=== PATIENT | female | born 1990 | race Asian ===

== ENCOUNTER 2016-07-22 12:11 | Emergency (ER) | payer OTHER ==
[~2016-07-22] VITALS: Ht 152.4 cm; Wt 62.6 kg
[~2016-07-22 12:11] MED LIST: CIPR500T PO; HYDR-971 PO; NAPR500T8 PO; PHEN-318 PO; PNV1TABL25 PO
[2016-07-22 12:29] VITALS: BP 122/79
[2016-07-22] MEDS ORDERED: TRAM-29 PO (13:02)
[2016-07-22] MEDS ORDERED: PENI500T PO (13:02)
--- NOTE | 2016-07-22 13:02 | PHYS DOC ---
Past Medical History Past Medical History: No Pertinent History Past Surgical History: No Surgical History Smoking: Chew Alcohol Use: None Additional Information: Pt chews tobbacco Drug Use: None Adult General Chief Complaint Chief Complaint: EARACHE/EAR PAIN HPI HPI Patient is a 25 year old female who presents with right ear and right ventricular dental pain for one week. She denies any fever, nasal congestion, sore throat, cough, or ear drainage. She does not have a PCP. Review of Systems Review of Systems Constitutional: Denies fever or chills. [] Eyes: Denies change in visual acuity, redness, or eye pain. [] HENT: Denies nasal congestion or sore throat. Reports right ear pain and dental pain. Respiratory: Denies cough or shortness of breath. [] Integument: Denies rash or skin lesions. [] Neurologic: Denies headache, focal weakness or sensory changes. [] Allergies Allergies Allergies Coded Allergies Type Severity Reaction Last Updated Verified No Known Drug Allergies 12/09/14 No Physical Exam Physical Exam Constitutional: Well developed, well nourished, no acute distress, non-toxic appearance. [] HENT: Normocephalic, atraumatic, bilateral external ears normal, oropharynx moist, no oral exudates, nose normal. Bilateral TMs without erythema or bulging. There is no posterior pharyngeal erythema or tonsillar edema. Bilateral nasal turbinates are swollen and erythematous. Tooth #31 is carious and tender without surrounding gingival edema or dental abscess. Eyes: PERRLA, EOMI, conjunctiva normal, no discharge. [] Neck: Normal range of motion, no tenderness, supple, no stridor. [] Skin: Warm, dry, no erythema, no rash. [] Neurologic: Alert and oriented X 3, normal motor function, normal sensory function, no focal deficits noted. [] Psychologic: Affect normal, judgement normal, mood normal. [] Current Patient Data Vital Signs Vital Signs Date Time Temp Pulse Resp B/P Pulse Ox O2 Delivery O2 Flow Rate FiO2 07/22/16 12:29 98.2 69 20 98 Room Air 98.2 EKG EKG [] Radiology/Procedures Radiology/Procedures [] Course & Med Decision Making Course & Med Decision Making Pertinent Labs and Imaging studies reviewed. (See chart for details) [] Dragon Disclaimer Dragon Disclaimer This electronic medical record was generated, in whole or in part, using a voice recognition dictation system. Departure Departure Impression: Primary Impression: Dental caries Disposition: HOME, SELF-CARE Condition: STABLE Referrals: NO PCP (PCP) Patient Instructions: Dental Caries, Dental Pain, [id number] Additional Instructions: Please complete all the prescribed antibiotics, even if you are feeling better. Please take the prescribed pain medication as directed. Do not drive or operate heavy machinery while taking pain medication. Please follow-up with the dentist of your choice as soon as possible to have your tooth treated. Return to the emergency department if you have any new or concerning symptoms. Scripts Tramadol Hcl (Ultram)50 Mg [id number] Mg PO Q6H PRN PAIN #20 TAB Prov:JENNIFER SENA 07/22/16 Penicillin V Potassium 500 Mg Tablet1 Tab PO TID #30 TAB Prov:JENNIFER SENA 07/22/16 JENNIEFR SENA Jul 22, 2016 13:02
== END 2016-07-22 13:07 | disposition home or self-care (01) ==
LOC: ER 12:11
DX: K02.9 Dental caries, unspecified (principal); F17.220 Nicotine dependence, chewing tobacco, uncomplicated
CPT/HCPCS: 99283

== ENCOUNTER 2018-08-27 07:15 | Inpatient (IN) | payer OTHER ==
[~2018-08-27] VITALS: Ht 152.4 cm; Wt 64.9 kg
[~2018-08-27 07:15] MED LIST changes: +HYDR-3164 PO; -HYDR-971 PO; +PENI500T PO; +TRAM-48 PO
[2018-08-27] MEDS ORDERED: IV RINGERS,LACTATED 1000ML 1,000 ML IV SCH ×2 (07:23→12:31)
[2018-08-27] MEDS ORDERED: CITRIC ACID/SODIUM CITRATE 30 ML SOLUTION. PO PRN (07:30)
[2018-08-27] MEDS ORDERED: 0.9 % SODIUM CHLORIDE 10 ML DISP.SYRIN. IV PRN ×2 (07:30→15:30)
[2018-08-27] MEDS ORDERED: TERBUTALINE 1 MG/ML VIAL. SQ PRN (07:30)
[2018-08-27] MEDS ORDERED: IBUPROFEN 400 MG TABLET. PO PRN ×2 (07:30→15:30)
[2018-08-27] MEDS ORDERED: LIDOCAINE 1% PF 30 ML VIAL. INJ PRN (07:30)
[2018-08-27] MEDS ORDERED: BUTORPHANOL 2 MG/ML VIAL. IV PRN ×2 (07:30)
[2018-08-27] MEDS ORDERED: fentaNYL PF VIAL 100 MCG/2 ML VIAL IV PRN ×2 (07:30)
[2018-08-27] MEDS ORDERED: OXYTOCIN 30 UNIT/500 ML PREMIX 500 ML IV PRN ×3 (07:30→15:30)
[2018-08-27] MEDS ORDERED: ONDANSETRON PF 4 MG/2 ML VIAL. IV PRN (07:30)
[2018-08-27 08:00] VITALS: BP 129/77
[2018-08-27 08:30] LABS: BASO % 0 % (0-3); EOS # 0.3 x10^3/uL (0.0-0.7); EOS % 3 % (0-3); HEMATOCRIT 30.8 % (36.0-47.0); HEMOGLOBIN 10.4 g/dL (12.0-15.5); LYMPH # 1.9 x10^3/uL (1.0-4.8); LYMPH % 24 % (24-48); MEAN CORPUSCULAR HEMOGLOBIN 30 pg (25-35); MEAN CORPUSCULAR HGB CONC 34 g/dL (31-37); MEAN CORPUSCULAR VOLUME 88 fL (79-100); MONO # 0.6 x10^3/uL (0.0-1.1); MONO % 8 % (0-9); NEUT # 5.3 x10^3uL (1.8-7.7); NEUT % 65 % (31-73); PLATELET COUNT 167 x10^3/uL (140-400); RED BLOOD COUNT 3.49 x10^6/uL (3.50-5.40); RED CELL DISTRIBUTION WIDTH 13.3 % (11.5-14.5); WHITE BLOOD COUNT 8.2 x10^3/uL (4.0-11.0)
[2018-08-27] MEDS ORDERED: OXYTOCIN PREMIX 30 UNIT/500 ML BAG. IV ONE (09:00)
[2018-08-27 10:18] LABS: % BANDS 6 % (0-9); % LYMPHS 24 % (24-48); % METAS 1 % (0-0); % MONOS 6 % (0-10); % MYELOS 1 % (0-0); % SEGS 62 % (35-66); PLT ESTIMATE ADEQUATE (ADEQUATE); POLYCHROMASIA SLIGHT
[2018-08-27] MEDS ORDERED: ROPIVacaine 0.2% PF 10 ML VIAL. ONE ×2 (12:29→12:45)
[2018-08-27] MEDS ORDERED: L&D EPIDURAL SYRINGE 50 ML ONE (12:29)
[2018-08-27] MEDS ORDERED: NALOXONE 0.4 MG/ML VIAL. IV PRN (12:45)
[2018-08-27] MEDS ORDERED: L&D EPIDURAL SYRINGE 50 ML EPID PRN (12:45)
[2018-08-27] MEDS ORDERED: ROPIVacaine 0.2% IN 0.9%NACL PF 40 MG/20 ML DISP.SYRIN. EPID PRN (12:45)
[2018-08-27] MEDS ORDERED: fentaNYL PF VIAL 100 MCG/2 ML VIAL EPI PRN (12:45)
--- NOTE | 2018-08-27 13:05 | PDOC1 ---
OB - History Hx of Present Care: Good Care Ultrasounds: Normal mid trimester US Obstetrical Complications: None Medical Complications: None Past Family/Social History * Past Medical, Surgical, Family and Obstetric Histories reviewed from chart. Blood Type: A+ Rubella: Immune RPR/VDRL: Negative GBS Status: Negative HBsAG: Negative OB - Chief Complaint & HPI Date of Admission: Date of Admission: August 27, 2018 at 07:15 Chief Complaint/History : 3 Para: 2 EGA: 39 Reason for admission: induction of labor Admission Nurse Assessment Rev: Yes OB - Admission Exam Physical Exam Vitals: VS - Last 72 Hours, by Label Date Time Temp Pulse Resp B/P (MAP) Pulse Ox O2 Delivery O2 Flow Rate FiO2 08/27/18 12:54 20 08/27/18 08:00 98.0 75 20 129/77 (94) 98.0 HEENT: Normal Heart: Regular Rate Lungs: Clear, Equal Abdomen: Gravid, Non tender, Soft Extremities: Edema Reflexes: Normal Cervical Dilatation: 3cm Effacement: 50% Station: -3 Membranes: Intact Amniotic Fluid: Clear Heart Rate: Normal Accelerations: Accelerations Present Contractions on Admission: None Intensity: Mild Text A: 39 wks IUP IOL maternal discomforts P: Admit labor induction pitocin. TIMMY KELSEY Jr, MD August 27, 2018 13:05
--- NOTE | 2018-08-27 15:29 | PDOC ---
VAGINAL DELIVERY DATE DATE: 08/27/18 TIME: 15:26 : 3 Para: 2 EDC: September 08, 2018 VAGINAL DELIVERY: VTX VACCUM ASSISTED: No PLACENTA: Spontaneous 8/9 SEX: Male WEIGHT 6/10 Nuchal Cord: Yes Amniotic Fluid: Clear PAIN: Epidural EPISIOTOMY: No EXTENSION: Yes EBL 400cc COMPLICATIONS None CONDITION Stable Signs of Intrauterine Infectio: None Shoulder Dystocia: No DIAGNOSIS CIRA Cobb MD August 27, 2018 15:29
[2018-08-27] MEDS ORDERED: MAGNESIUM HYDROXIDE 2,400 MG/30 ML ORAL.SUSP. PO PRN (15:30)
[2018-08-27] MEDS ORDERED: HYDROCORTISONE 1% TOPICAL OINTMENT 30GM TUBE. TP PRN (15:30)
[2018-08-27] MEDS ORDERED: BENZOCAINE 20% TOPICAL AEROSOL SPRAY 57GM CAN. TP PRN (15:30)
[2018-08-27] MEDS ORDERED: diphenhydrAMINE HCL 25 MG CAPSULE PO PRN (15:30)
[2018-08-27] MEDS ORDERED: SIMETHICONE 80 MG TAB.CHEW PO PRN (15:30)
[2018-08-27] MEDS ORDERED: PHENYLEPH/MINERAL OIL/PETROLAT RECTAL OINTMENT 28GM TUBE. RC PRN (15:30)
[2018-08-27] MEDS ORDERED: MAG HYDROX/ALUMINUM HYD/SIMETH 30 ML ORAL.SUSP PO PRN (15:30)
[2018-08-27] MEDS ORDERED: ZOLPIDEM 5 MG TABLET. PO PRN (15:30)
[2018-08-27] MEDS ORDERED: FERROUS SULFATE 325 MG TABLET. PO SCH (17:00)
[2018-08-27] MEDS: IBUPROFEN 400 MG TABLET. PO PRN (17:25)
[2018-08-27 17:45] VITALS: BP 103/61
[2018-08-27 18:56] VITALS: BP 115/65
[2018-08-27 22:25] VITALS: BP 109/64
[2018-08-28] MEDS: ACETAMINOPHEN 325 MG TABLET. PO PRN ×2 (00:21→12:19)
[2018-08-28] MEDS: IBUPROFEN 400 MG TABLET. PO PRN ×2 (06:09→19:35)
[2018-08-28 06:12] VITALS: BP 116/75
[2018-08-28 11:15] VITALS: BP 106/71
--- NOTE | 2018-08-28 12:39 | PDOC ---
OB Progress Note Date of Service 08/28/18 Time of Evaluation 1235 Notes Pt. feeling well. No complaints. Lab Laboratory Tests Test 08/27/18 08:15 08/28/18 07:20 White Blood Count 8.2 x10^3/uL (4.0-11.0) Red Blood Count 3.49 x10^6/uL (3.50-5.40) Hemoglobin 10.4 g/dL (12.0-15.5) Hematocrit 30.8 % (36.0-47.0) 26.8 % (36.0-47.0) Mean Corpuscular Volume 88 fL (79-100) Mean Corpuscular Hemoglobin 30 pg (25-35) Mean Corpuscular Hemoglobin Concent 34 g/dL (31-37) Red Cell Distribution Width 13.3 % (11.5-14.5) Platelet Count 167 x10^3/uL (140-400) Neutrophils (%) (Auto) 65 % (31-73) Lymphocytes (%) (Auto) 24 % (24-48) Monocytes (%) (Auto) 8 % (0-9) Eosinophils (%) (Auto) 3 % (0-3) Basophils (%) (Auto) 0 % (0-3) Neutrophils # (Auto) 5.3 x10^3uL (1.8-7.7) Lymphocytes # (Auto) 1.9 x10^3/uL (1.0-4.8) Monocytes # (Auto) 0.6 x10^3/uL (0.0-1.1) Eosinophils # (Auto) 0.3 x10^3/uL (0.0-0.7) Basophils # (Auto) 0.0 x10^3/uL (0.0-0.2) Segmented Neutrophils % 62 % (35-66) Band Neutrophils % 6 % (0-9) Lymphocytes % 24 % (24-48) Monocytes % 6 % (0-10) Metamyelocytes % 1 % (0-0) Myelocytes % 1 % (0-0) Platelet Estimate Adequate (ADEQUATE) Polychromasia Slight Treponema pallidum Antibody Nonreactive (Nonreactive) Laboratory Tests Test 08/28/18 07:20 Hematocrit 26.8 % (36.0-47.0) Medications Current Medications Sodium Chloride (Normal Saline Flush) 3 ml QSHIFT PRN IV AFTER MEDS AND BLOOD DRAWS; Start 08/27/18 at 07:30 Ringer's Solution 1,000 ml @ 125 mls/hr Q8H IV Last administered on 08/27/18at 08:27; Start 08/27/18 at 07:23 Butorphanol Tartrate (Stadol) 1 mg PRN Q1HR PRN IV mild to moderate labor pain; Start 08/27/18 at 07:30 Butorphanol Tartrate (Stadol) 2 mg PRN Q1HR PRN IV Severe labor pain; Start 08/27/18 at 07:30 Fentanyl Citrate (Fentanyl 2ml Vial) 50 mcg PRN Q30MIN PRN IV Mild to moderate pain; Start 08/27/18 at 07:30 Fentanyl Citrate (Fentanyl 2ml Vial) 100 mcg PRN Q30MIN PRN IV Severe pain; Start 08/27/18 at 07:30 Ondansetron HCl (Zofran) 4 mg PRN Q4HRS PRN IV NAUSEA/VOMITING; Start 08/27/18 at 07:30 Citric Acid/ Sodium Citrate (Bicitra) 30 ml 1X PRN PRN PO DYSPEPSIA; Start 08/27/18 at 07:30; Stop 08/28/18 at 07:29; Status DC Terbutaline Sulfate (Brethine) 0.25 mg 1X PRN PRN SQ SEE COMMENTS; Start 08/27/18 at 07:30; Stop 08/28/18 at 07:29; Status DC Lidocaine HCl (Xylocaine 1% Pf 30ml Vial) 30 ml 1X PRN PRN INJ SEE COMMENTS; Start 08/27/18 at 07:30; Stop 08/29/18 at 07:29 Oxytocin/Sodium Chloride 500 ml @ 0 mls/hr CONT PRN IV SEE I/O RECORD; Start 08/27/18 at 07:30; Stop 08/27/18 at 15:49; Status DC Oxytocin/Sodium Chloride 500 ml @ 0 mls/hr CONT PRN PRN IV Post delivery bleeding; Start 08/27/18 at 07:30 Ibuprofen (Motrin) 800 mg PRN Q6HRS PRN PO MODERATE PAIN; Start 08/27/18 at 07:30; Stop 08/27/18 at 15:49; Status DC Ropivacaine (Naropin 0.2%) 10 ml STK-MED ONCE .ROUTE ; Start 08/27/18 at 12:29; Stop 08/27/18 at 12:30; Status DC Ropivacaine/ Fentanyl/NS 50 ml @ As Directed STK-MED ONCE .ROUTE ; Start 08/27/18 at 12:29; Stop 08/27/18 at 12:30; Status DC Ringer's Solution 1,000 ml @ 1,000 mls/hr Q1H IV Last administered on 08/27/18at 12:50; Start 08/27/18 at 12:31; Stop 08/27/18 at 13:30; Status DC Naloxone HCl (Narcan) 0.04 mg PRN Q1MIN PRN IV SEE COMMENTS; Start 08/27/18 at 12:45 Fentanyl Citrate (Fentanyl 2ml Vial) 100 mcg PRN 1X PRN EPI FOR ANESTHESIA; Start 08/27/18 at 12:45; Stop 08/28/18 at 12:44 Ropivacaine/ Fentanyl/NS 50 ml @ 14 mls/hr CONT PRN EPID PAIN Last administered on 08/27/18at 12:54; Start 08/27/18 at 12:45 Ropivacaine/ Sodium Chloride (ROPIVacaine 0.2% - 0.9%NACL PF) 40 mg 1X PRN PRN EPID PER ANESTHESIA; Start 08/27/18 at 12:45; Stop 08/28/18 at 12:31; Status DC Ropivacaine (Naropin 0.2%) 10 ml STK-MED ONCE .ROUTE ; Start 08/27/18 at 12:45; Stop 08/27/18 at 12:46; Status DC Sodium Chloride (Normal Saline Flush) 10 ml QSHIFT PRN IV AFTER MEDS AND BLOOD DRAWS; Start 08/27/18 at 15:30 Oxytocin/Sodium Chloride 500 ml @ 62.5 mls/hr CONT PRN IV SEE I/O RECORD; Start 08/27/18 at 15:30; Stop 08/27/18 at 23:29; Status DC Acetaminophen (Tylenol) 650 mg PRN Q6HRS PRN PO MILD PAIN / TEMP Last administered on 08/28/18at 12:19; Start 08/27/18 at 15:30 Ibuprofen (Motrin) 800 mg PRN Q8HRS PRN PO INFLAMMATION Last administered on 08/28/18at 06:09; Start 08/27/18 at 17:00 Ibuprofen (Motrin) 800 mg PRN Q8HRS PRN PO INFLAMMATION/PAIN PREVENTION; Start 08/27/18 at 15:30; Status UNV Magnesium Hydroxide (Milk Of Magnesia) 2,400 mg PRN DAILY PRN PO CONSTIPATION; Start 08/27/18 at 15:30 Al Hydroxide/Mg Hydroxide (Mylanta Plus Xs) 30 ml PRN Q4HRS PRN PO HEARTBURN / GAS; Start 08/27/18 at 15:30 Simethicone (Gas-X) 80 mg PRN AFTMEALHC PRN PO GAS / BLOATING; Start 08/27/18 at 15:30 Diphenhydramine HCl (Benadryl) 25 mg PRN Q6HRS PRN PO ITCHING; Start 08/27/18 at 15:30 Benzocaine (Americaine) 1 spray PRN QID PRN TP TOPICAL PAIN Last administered on 08/27/18at 17:25; Start 08/27/18 at 15:30 Phenyleph/Shark Oil/Min Oil/Petrol (Preparation H) 1 veena PRN QID PRN RC RECTAL PAIN; Start 08/27/18 at 15:30 Hydrocortisone (Cortaid) 1 veena PRN QID PRN TP PERINEAL PAIN; Start 08/27/18 at 15:30 Ferrous Sulfate (Feosol) 325 mg BIDWMEALS PO ; Start 08/27/18 at 17:00 Zolpidem Tartrate (Ambien) 5 mg PRN QHS PRN PO INSOMNIA, MAY REPEAT X1; Start 08/27/18 at 15:30 Info (Do NOT chart on this placeholder) 1 ea 1X PRN PRN MC SEE COMMENTS; Start 08/27/18 at 15:30 Oxytocin/Sodium Chloride (Oxytocin Premix Infusion) 30 unit STK-MED ONCE IV ; Start 08/27/18 at 09:00; Stop 08/28/18 at 08:26; Status DC Active Scripts Active Ultram (Tramadol Hcl) 50 Mg Tablet 50 Mg PO Q6H PRN Penicillin V Potassium 500 Mg Tablet 1 Tab PO TID Pyridium (Phenazopyridine Hcl) 200 Mg Tablet 200 Mg PO TID Ciprofloxacin Hcl 500 Mg Tablet 1 Tab PO BID Naproxen 500 Mg Tablet.dr 1 Tab PO BID [place] 5-325 Tablet (Acetaminophen/Hydrocodone Bitart) 1 Each Tablet 1 Tab PO PRN Q6HRS PRN Reported Tablet (Pnv Cmb#95/Ferrous Fumarate/Fa) 1 Each Tablet 1 Each PO DAILY Exam Abd: soft, nontender, fundus firm Assessment PPD#1 s/p Plan of Care: Continue current Tx, Mgmt TIMMY KELSEY Jr, MD August 28, 2018 12:39
[2018-08-28 15:40] VITALS: BP 110/72
[2018-08-28 23:02] VITALS: BP 111/68
[2018-08-29] MEDS: IBUPROFEN 400 MG TABLET. PO PRN ×2 (03:12→16:43)
[2018-08-29 06:19] VITALS: BP 123/79
[2018-08-29] MEDS: ACETAMINOPHEN 325 MG TABLET. PO PRN (08:58)
[2018-08-29 11:25] VITALS: BP 118/77
--- NOTE | 2018-08-29 13:01 | PDOC3 ---
OB DISCHARGE SUMMARY DATE OF ADMISSION: 08/27/18 DATE OF DISCHARGE: 08/29/18 REASON FOR ADMISSION: Induction of labor PROCEDURES: Ultrasound INTRAPARTUM PROCEDURES: Spontanous Vag Deliv PROCEDURES: None OPERATIONS: None DISCHARGE DIAGNOSIS: Term Delivered DISCHARGE INFORMATION: Activity, Diet HOSPITAL COURSE Unremarkable CONDITION AT DISCHARGE Stable CIRA ALBARADO MD August 29, 2018 13:00
[2018-08-29] MEDS ORDERED: HYDR-3164 PO (13:03)
[2018-08-29] MEDS ORDERED: NAPR-514 PO (13:03)
[2018-08-29 16:30] VITALS: BP 108/72
== END 2018-08-29 18:00 | disposition home or self-care (01) | DRG 806 ==
LOC: 3 SO LND 07:15 → 3 NORTH 17:40
PROVIDERS: ADMIT Specialist; ATTEND Specialist
PROC: 10E0XZZ Delivery of Products of Conception, External Approach (ICD-10-PCS; principal; 2018-08-27)
PROC: 00HU33Z Insertion of Infusion Device into Spinal Canal, Percutaneous Approach (ICD-10-PCS; 2018-08-27)
PROC: 3E0R3BZ Introduction of Anesthetic Agent into Spinal Canal, Percutaneous Approach (ICD-10-PCS; 2018-08-27)
DX: O69.81X0 Labor and delivery complicated by cord around neck, without compression, not applicable or unspecified (principal); D62 Acute posthemorrhagic anemia; Z37.0 Single live birth; Z3A.39 39 weeks gestation of pregnancy; O99.02 Anemia complicating childbirth
CPT/HCPCS: 36415; 85007; 85014; 85025; 86592; 86850; 86900; 86901; J2590; J7120

== ENCOUNTER 2020-06-24 01:31 | Emergency (ER) | payer BC, OTHER ==
[~2020-06-24] VITALS: Ht 167.6 cm; Wt 59.1 kg
[~2020-06-24 01:31] MED LIST changes: -CIPR500T PO; +CIPR500T2 PO; +NAPR-514 PO
[2020-06-24 02:08] LABS: BILIRUBIN,URINE NEGATIVE (NEG); CLARITY,URINE CLEAR; COLOR,URINE YELLOW; NITRITE,URINE NEGATIVE (NEG); PH,URINE 6.5 (<5.0-8.0); PROTEIN,URINE NEGATIVE (NEG-TRACE); UROBILINOGEN,URINE 0.2 mg/dL (0.2 mg/dL)
[2020-06-24 02:21] LABS: BACTERIA,URINE 0 /HPF (0-FEW)
[2020-06-24] MEDS: IV NORMAL SALINE 1000ML BAG 1,000 ML IV ONE (02:29)
[2020-06-24] MEDS: KETOROLAC 15 MG/ML VIAL. IVP ONE (02:30)
[2020-06-24 02:37] LABS: BASO % 1 % (0-3); EOS # 0.1 x10^3/uL (0.0-0.7); EOS % 2 % (0-3); HEMATOCRIT 32.4 % (36.0-47.0); HEMOGLOBIN 10.3 g/dL (12.0-15.5); LYMPH # 2.6 x10^3/uL (1.0-4.8); LYMPH % 44 % (24-48); MEAN CORPUSCULAR HEMOGLOBIN 24 pg (25-35); MEAN CORPUSCULAR HGB CONC 32 g/dL (31-37); MEAN CORPUSCULAR VOLUME 74 fL (79-100); MONO # 0.4 x10^3/uL (0.0-1.1); MONO % 7 % (0-9); NEUT # 2.8 x10^3/uL (1.8-7.7); NEUT % 47 % (31-73); PLATELET COUNT 249 x10^3/uL (140-400); RED BLOOD COUNT 4.36 x10^6/uL (3.50-5.40); WHITE BLOOD COUNT 5.9 x10^3/uL (4.0-11.0)
--- NOTE | 2020-06-24 02:41 | RAD ---
CT HEAD/BRAIN WO Date: 06/24/2020 2:09 AM Clinical Indication: left headache, new onset Comparison: None. Technique: 5 mm axial tomographic images were obtained of the head without contrast. These were view ed on brain and bone windows. One or more of the following dose reduction techniques were utilized: A utomated exposure control (AEC), Adjustment of mA and/or kV according to patient size, Use of iterati ve reconstruction technique such as ASiR, CT scan done according to ALARA and image gently/image pierce ly Findings: The brain parenchyma is normal in attenuation. No intra- or extra-axial mass or fluid collection. No acute hemorrhage. The ventricles are normal in size, shape, and morphology. The argueta-white matter alberto ction is normal. The subarachnoid cisterns are patent. The visualized paranasal sinuses are normal. The visualized portions of the orbits and globes are no rmal. The mastoid air cells are clear. The media producer topogram shows no lytic lesion or fracture. Impression: No acute intracranial process. Electronically signed by: Ron Hernandez MD (06/24/2020 2:39 AM) [facility]
[2020-06-24 02:45] LABS: CALCIUM 9.1 mg/dL (8.5-10.1); CREATININE 0.6 mg/dL (0.6-1.0); GFR 116.6; POTASSIUM 3.3 mmol/L (3.5-5.1)
[2020-06-24 02:51] LABS: ALBUMIN/GLOBULIN RATIO 1.1 (1.0-1.7); PHOSPHORUS 4.7 mg/dL (2.6-4.7); TOTAL BILIRUBIN 0.5 mg/dL (0.2-1.0); TOTAL PROTEIN 7.7 g/dL (6.4-8.2)
[2020-06-24] MEDS ORDERED: IRON1TAB29 PO (03:14)
--- NOTE | 2020-06-24 03:15 | ED.ADGEN ---
Past Medical History Past Medical History: No Pertinent History Past Surgical History: No Surgical History Smoking Status: Never Smoker Alcohol Use: None Drug Use: None General Adult EDM: Chief Complaint: HEADACHE HPI: HPI: Patient is a 29 year old female coming in for multiple complaints. Patient does not speak Mongolian and were using translation line and patient's friend. Patient states she has had intermittent headache past 2 weeks. Also complaining of tingling in her feet bilateral lower extremities. States she has an IUD and has not had a period since February. Denies any fevers, vision changes. Is not taking medications for headache. States the headache comes and goes. Denies any fevers, cough, nausea, vomiting, diarrhea. Denies any medical history. Is G4, P3 Review of Systems: Review of Systems: All other systems within normal limits except for as noted in the HPI Current Medications: Current Medications Medications (Trade) Dose Ordered Sig/Reji Start Time Stop Time Status Last Admin Dose Admin Ketorolac Tromethamine (Toradol 15mg Vial) 15 mg 1X ONCE 06/24/20 02:30 06/24/20 02:31 DC 06/24/20 02:30 15 MG Sodium Chloride 1,000 ml @ 1,000 mls/hr 1X ONCE 06/24/20 02:30 06/24/20 03:29 06/24/20 02:29 1,000 MLS/HR Allergies: Allergies: Allergies Coded Allergies Type Severity Reaction Last Updated Verified No Known Drug Allergies 12/09/14 No Physical Exam: PE: Constitutional: Well developed, well nourished, no acute distress, non-toxic appearance. [] HENT: Normocephalic, atraumatic, bilateral external ears normal, nose normal. [] Eyes: PERRLA, conjunctiva normal, no discharge. [] Neck: No rigidity, supple, no stridor. [] Cardiovascular: Regular rate and rhythm, brisk cap refill [] Lungs & Thorax: Non labored symmetric respirations, no tachypnea or respiratory distress [] Abdomen: Soft, nondistended, no tenderness to palpation, no masses. Skin: Warm, dry, no erythema, no rash. [] Back: Unremarkable Extremities: No deformities, range of motion grossly intact, no lower extremity edema [] Neurologic: Alert and oriented X 3, no focal deficits noted. [] Psychologic: Affect normal, judgement normal, mood normal. [] Current Patient Data: Labs: Laboratory Tests Test 06/24/20 01:40 06/24/20 01:45 06/24/20 02:30 Urine Collection Type Unknown Urine Color Yellow Urine Clarity Clear Urine pH 6.5 (<5.0-8.0) Urine Specific [place] <=1.005 (1.000-1.030) Urine Protein Negative mg/dL (NEG-TRACE) Urine Glucose (UA) Negative mg/dL (NEG) Urine Ketones (Stick) Negative mg/dL (NEG) Urine Blood Large (NEG) Urine Nitrite Negative (NEG) Urine Bilirubin Negative (NEG) Urine Urobilinogen Dipstick 0.2 mg/dL (0.2 mg/dL) Urine Leukocyte Esterase Trace (NEG) Urine RBC 1-2 /HPF (0-2) Urine WBC 1-4 /HPF (0-4) Urine Squamous Epithelial Cells Few /LPF Urine Bacteria 0 /HPF (0-FEW) POC Urine HCG, Qualitative Hcg negative (Negative) White Blood Count 5.9 x10^3/uL (4.0-11.0) Red Blood Count 4.36 x10^6/uL (3.50-5.40) Hemoglobin 10.3 g/dL (12.0-15.5) L Hematocrit 32.4 % (36.0-47.0) L Mean Corpuscular Volume 74 fL (79-100) L Mean Corpuscular Hemoglobin 24 pg (25-35) L Mean Corpuscular Hemoglobin Concent 32 g/dL (31-37) Red Cell Distribution Width 16.0 % (11.5-14.5) H Platelet Count 249 x10^3/uL (140-400) Neutrophils (%) (Auto) 47 % (31-73) Lymphocytes (%) (Auto) 44 % (24-48) Monocytes (%) (Auto) 7 % (0-9) Eosinophils (%) (Auto) 2 % (0-3) Basophils (%) (Auto) 1 % (0-3) Neutrophils # (Auto) 2.8 x10^3/uL (1.8-7.7) Lymphocytes # (Auto) 2.6 x10^3/uL (1.0-4.8) Monocytes # (Auto) 0.4 x10^3/uL (0.0-1.1) Eosinophils # (Auto) 0.1 x10^3/uL (0.0-0.7) Basophils # (Auto) 0.0 x10^3/uL (0.0-0.2) Sodium Level 143 mmol/L (136-145) Potassium Level 3.3 mmol/L (3.5-5.1) L Chloride Level 104 mmol/L (98-107) Carbon Dioxide Level 26 mmol/L (21-32) Anion Gap 13 (6-14) Blood Urea Nitrogen 9 mg/dL (7-20) Creatinine 0.6 mg/dL (0.6-1.0) Estimated GFR (Cockcroft-Gault) 116.6 BUN/Creatinine Ratio 15 (6-20) Glucose Level 101 mg/dL (70-99) H Calcium Level 9.1 mg/dL (8.5-10.1) Phosphorus Level 4.7 mg/dL (2.6-4.7) Magnesium Level 2.0 mg/dL (1.8-2.4) Total Bilirubin 0.5 mg/dL (0.2-1.0) Aspartate Amino Transferase (AST) 21 U/L (15-37) Alanine Aminotransferase (ALT) 27 U/L (14-59) Alkaline Phosphatase 54 U/L (46-116) Total Protein 7.7 g/dL (6.4-8.2) Albumin 4.0 g/dL (3.4-5.0) Albumin/Globulin Ratio 1.1 (1.0-1.7) Laboratory Tests 06/24/20 02:30 Laboratory Tests 06/24/20 02:30 Vital Signs: Vital Signs Date Time Temp Pulse Resp B/P (MAP) Pulse Ox O2 Delivery O2 Flow Rate FiO2 06/24/20 01:40 97.9 72 12 149/97 (114) 100 Room Air 97.9 EKG: EKG: [] Heart Score: C/O Chest Pain: No Risk Factors: Risk Factors: DM, Current or recent (<one month) smoker, HTN, HLP, family history of CAD, obesity. Risk Scores: Score 0 - 3: 2.5% MACE over next 6 weeks - Discharge Home Score 4 - 6: 20.3% MACE over next 6 weeks - Admit for Clinical Observation Score 7 - 10: 72.7% MACE over next 6 weeks - Early Invasive Strategies Radiology/Procedures: Radiology/Procedures: CT HEAD/BRAIN WO Date: 06/24/2020 2:09 AM Clinical Indication: left headache, new onset Comparison: None. Technique: 5 mm axial tomographic images were obtained of the head without contrast. These were viewed on brain and bone windows. One or more of the following dose reduction techniques were utilized: Automated exposure control (AEC), Adjustment of mA and/or kV according to patient size, Use of iterative reconstruction technique such as ASiR, CT scan done according to ALARA and image gently/image wisely Findings: The brain parenchyma is normal in attenuation. No intra- or extra-axial mass or fluid collection. No acute hemorrhage. The ventricles are normal in size, shape, and morphology. The argueta-white matter junction is normal. The subarachnoid cisterns are patent. The visualized paranasal sinuses are normal. The visualized portions of the orbits and globes are normal. The mastoid air cells are clear. The watch case polisher topogram shows no lytic lesion or fracture. Impression: No acute intracranial process. [] Course & Med Decision Making: Course & Med Decision Making Pertinent Labs and Imaging studies reviewed. (See chart for details) Patient's headache relieved with Toradol and fluids. Only lab abnormality is anemia. Will start iron. Discussed patient's need to follow-up with [facility] for her questions or concerns about her IUD [] Ravinder Disclaimer: Ravinder Disclaimer: This electronic medical record was generated, in whole or in part, using a voice recognition dictation system. Departure Departure Impression: Primary Impression: Headache Additional Impression: Anemia Disposition: 01 DC HOME SELF CARE/HOMELESS Condition: STABLE Referrals: [facility] Scripts Iron,Carbonyl/Ascorbic Acid (IRON 100-VITAMIN C TABLET) 1 Each Tablet 1 EACH PO DAILY for anemia for 30 Days, #30 TAB Prov: KATLYN GALINDO MD 06/24/20 Problem Qualifiers KATLYN GALINDO MD Jun 24, 2020 03:15
[2020-06-24 03:27] VITALS: BP 128/86
== END 2020-06-24 04:00 | disposition home or self-care (01) ==
LOC: ER 01:31
DX: R51.9 Headache, unspecified (principal); D64.9 Anemia, unspecified; R20.2 Paresthesia of skin
CPT/HCPCS: 36415; 70450; 80053; 81001; 81025; 83735; 84100; 85025; 87086; 96361; 96374; 99284; J1885; J7030